=== PATIENT | female | born 1960 | race Caucasian/White ===

== ENCOUNTER → 2016-05-30 | Outpatient (CLI) | payer OTHER ==
[2016-05-30 13:57] LABS: ABSOLUTE NEUTROPHILS 2.9 thou/uL (1.4-8.2); BASOPHILS 0.9 % (0.0-2.0); EOSINOPHILS 2.9 % (0.0-3.0); HEMATOCRIT 43.2 % (37.0-47.0); HEMOGLOBIN 14.7 gm/dL (12.0-15.0); LYMPHOCYTES 29.4 % (24.0-44.0); MCH 31.2 pg (26.0-34.0); MCV 91.6 fL (80.0-100.0); MONOCYTES 6.5 % (1.0-8.0); PLATELET COUNT 221 thou/uL (150-400); POLYS 60.3 % (36.0-66.0); RBC 4.72 mil/uL (4.20-5.00); RDW 13.1 % (10.5-14.5); WBC 4.8 thou/uL (4.0-11.0)
[2016-05-30 13:58] LABS: URINE BILIRUBIN NEGATIVE (Negative); URINE BLOOD NEGATIVE (Negative); URINE COLOR YELLOW; URINE GLUCOSE-RANDOM* NEGATIVE (Negative); URINE KETONES NEGATIVE (Negative); URINE NITRITE NEGATIVE (Negative); URINE PROTEIN (DIPSTICK) NEGATIVE (Negative); URINE SPECIFIC GRAVITY <= 1.005 (1.003-1.035); URINE UROBILINOGEN 0.2 E.U./dl (0.2-1.0)
[2016-05-30 14:01] LABS: MANUAL DIFF NO
[2016-05-30 14:08] LABS: ANION GAP 8 mmol/L (7-16); BUN 14 mg/dL (7-18); CALCIUM 8.7 mg/dL (8.5-10.1); CHLORIDE 103 mmol/L (98-107); CO2 28 mmol/L (21-32); GLUCOSE 90 mg/dL (74-106); POTASSIUM 3.8 mmol/L (3.5-5.1); SODIUM 139 mmol/L (136-145)
[2016-05-30 14:17] LABS: ALBUMIN 3.5 g/dL (3.4-5.0); ALKALINE PHOSPHATASE 55 U/L (46-116); CHOLESTEROL 210 mg/dL (<200); HDL CHOLESTEROL 64 mg/dL (>40); LDL CHOLESTEROL 132 mg/dL (<100); SGOT 16 U/L (15-37); SGPT 18 U/L (30-65); TC:HDL 3.3 Ratio (Not establshd); TOTAL BILIRUBIN 0.5 mg/dL (<0.1-1.0); TOTAL PROTEIN 6.6 g/dL (6.4-8.2); TRIGLYCERIDE 70 mg/dL (<150); VLDL 14 mg/dL (<40)
== END ==
LOC: LABMALL 12:50
PROVIDERS: Family Medicine
DX: Z00.00 Encounter for general adult medical examination without abnormal findings (principal); E78.00 Pure hypercholesterolemia, unspecified

== ENCOUNTER → 2017-12-01 | Outpatient (CLI) | payer OTHER | LOC: RAD 03:29 | DX: Z12.31 Encounter for screening mammogram for malignant neoplasm of breast (principal) ==

== ENCOUNTER → 2017-12-01 | Outpatient (CLI) | payer OTHER | LOC: CAT | DX: Z13.6 Encounter for screening for cardiovascular disorders (principal); E78.00 Pure hypercholesterolemia, unspecified ==

== ENCOUNTER → 2017-12-08 | Outpatient (CLI) | payer OTHER | LOC: RAD 01:22 | DX: R92.0 Mammographic microcalcification found on diagnostic imaging of breast (principal); R92.1 Mammographic calcification found on diagnostic imaging of breast ==

== ENCOUNTER → 2017-12-09 | Outpatient (CLI) | payer OTHER ==
--- NOTE | ~2017-12-09 | PATH ---
[facility] [address] [place] [address] PATHOLOGY RPT PROCEDURE Name: KYE CARDOZA Room #: REG [facility] M..#: [id number] Admission: 12/09/17 Date of : 60 Discharge: Report #: [id number] Path Case #: [id number] [facility] Accession Number: [id number] . 01 Material submitted: . RIGHT BREAST CALCIFICATIONS . 01 Clinical history: . Calcifications . 02 Diagnosis: Breast "right breast biopsy for microcalcifications": - A focus of atypical ducts measuring 0.2 cm suspicious for ductal carcinoma. - Focal intraductal proliferation with microcalcification. - See comment. (SHA:clemente; 12/11/2017) QMS/12/12/2017 . 02 Comment: The immunoperoxidase stain on the A1 at area of ductal proliferation revealed the CK5/6 to be positive. Hence the ductal proliferation appears to be of usual type. The area of atypical ducts revealed p63 and smooth muscle myosin negative. The atypical ducts are suspicious for invasive ductal carcinoma. . This case is also reviewed by Dr. Yessenia Fowler. The focus of area suspicious for invasive ductal carcinoma is minute for breast prognostic studies, hence these should be performed on the lumpectomy specimen for accurate evaluation. . Ekaterina at Dr. Trina Yee's office was notified of the diagnosis on 12/12/17 at 2:30 pm. . . . . (SHA:clemente; 12/11/2017) . 02 Electronically signed: . Snia Dumont MD, Pathologist NPI- [id number] . 01 Gross description: . The specimen is received in formalin, labeled "Key Cardoza, right breast," and additionally labeled on the requisition as, "right central". [address] [address] PATHOLOGY RPT PROCEDURE Name: KEY CARDOZA Room #: REG CLI Blake.#: [id number] Admission: 12/09/17 Date of : 60 Discharge: Report #: [id number] Path Case #: [id number] Received are multiple needle cores of fibrofatty tissue measuring 3.2 x 3.1 x 0.5 cm in aggregate dimensions. Also received within the container is a plastic cassette containing multiple coarse measuring 1.5 x 1.0 x 0.3 cm in aggregate dimensions. The suspect tissue is transferred to cassettes A1 with the remainder the specimen submitted in cassettes A2 through A4. The cold ischemic time is 5 minutes. The total formalin fixation time is 10 hours and 40 minutes. (CAA; 12/09/2017) QAC/QAC . 02 Pathologist provided ICD-10: N60.91 . 02 CPT . 365990, M09415, K66351 Specimen Comment: A courtesy copy of this report has been sent to Specimen Comment: [phone], . Specimen Comment: Report sent to / DR YEE Performed at: [address], [place] [id number] MD Cuate Sesay MD Phone: [phone] Performed at: [address] [id number] MD Genia Merritt MD Phone: [phone]
== END | disposition home or self-care (01) ==
LOC: RAD 10:36
DX: R92.0 Mammographic microcalcification found on diagnostic imaging of breast (principal); Z98.890 Other specified postprocedural states

== ENCOUNTER → 2017-12-29 | Outpatient (CLI) | payer OTHER ==
[~2017-12-29] MED LIST: ASPIR 8181 MG PO; CENTRUM SILVER1 EAC4 PO; CLOBETASOL PROP15 GM TOP; CLONAZEPAM 0.50.5 M1 PO; CRESTOR10 MG PO; FLUOXETINE HCL40 MG PO
== END ==
LOC: MRI 10:30
DX: C50.411 Malignant neoplasm of upper-outer quadrant of right female breast (principal)

== ENCOUNTER 2018-01-06 05:23 | Day surgery (SDC) | payer OTHER ==
[2017-12-31 14:15] LABS: HEMATOCRIT 44.5 % (37.0-47.0); HEMOGLOBIN 15.1 gm/dL (12.0-15.0); MCH 31.2 pg (26.0-34.0); MCHC 33.8 g/dL (28.0-37.0); MCV 92.1 fL (80.0-100.0); RBC 4.83 mil/uL (4.20-5.00); RDW 12.7 % (10.5-14.5); WBC 6.1 thou/uL (4.0-11.0)
[2017-12-31 14:27] LABS: ALBUMIN 4.3 g/dL (3.4-5.0); CALCIUM 9.5 mg/dL (8.5-10.1); TOTAL BILIRUBIN 0.5 mg/dL (<0.1-1.0); TOTAL PROTEIN 7.3 g/dL (6.4-8.2)
[~2018-01-06] VITALS: Ht 165.1 cm; Wt 75.3 kg
--- NOTE | ~2018-01-06 | PATH ---
[facility] [address] [place] [address] PATHOLOGY RPT PROCEDURE Name: KEY CARDOZA Room #: DEP [facility].R.#: [id number] Admission: 01/06/18 Date of : 60 Discharge: 01/06/18 Report #: [id number] Path Case #: [id number] [facility] Accession Number: [id number] . 01 Material submitted: . PART A: RIGHT BREAST SEGMENTAL RESECTION, FREDDY SUTURE LAT, SHORT SUTUR SUPER PART B: RIGHT AXILLARY SENTINEL LYMPH NODE #1 PART C: RIGHT AXILLARY SENTINEL LYMPH NODE #2 PART D: RIGHT AXILLARY SENTINEL LYMPH NODE #3 . 01 Clinical history: . Right breast cancer . 02 Diagnosis: A. Breast, right breast segmental resection: - No residual invasive carcinoma present; biopsy site changes present. - DUCTAL CARCINOMA IN SITU, CRIBRIFORM TYPE AND INTERMEDIATE NUCLEAR GRADE. - Margins of resection free of ductal carcinoma in situ; closest inferior margin is 1 mm away. - FOCAL ATYPICAL DUCTAL HYPERPLASIA PRESENT AT INFERIOR MARGIN. - Background breast tissue showing proliferative fibrocystic changes associated with adenosis, apocrine metaplasia, usual ductal hyperplasia, as well as columnar cell change. . B. Lymph node (1), right axillary sentinel lymph node #1, biopsy: - Reactive lymph node without isolated tumor cells, micrometastases, or malignancy (0/1). . C. Lymph node (1), right axillary sentinel lymph node #2, biopsy: - Reactive lymph node without isolated tumor cells, micrometastases, or malignancy (0/1). . D. Lymph node (1), right axillary sentinel lymph node #3, biopsy: - Reactive lymph node without isolated tumor cells, micrometastases, or malignancy (0/1). . (IUV:clemente; 01/13/2018) . . Surgical Pathology Cancer Case Summary . Protocol posting date: February 2017 . INVASIVE CARCINOMA OF THE BREAST: . Specimen Identification . [address] [address] PATHOLOGY RPT PROCEDURE Name: KEY CARDOZA Room #: DEP [facility].#: [id number] Admission: 01/06/18 Date of : 60 Discharge: 01/06/18 Report #: [id number] Path Case #: [id number] Procedure . ___ Excision (less than total mastectomy) . Specimen Laterality . ___ Right . Tumor Size . ___ No residual invasive carcinoma in the lumpectomy . ___ Greatest dimension of largest invasive focus is 1 mm in the biopsy . Histologic Type . ___ Micro-invasive carcinoma in the biopsy . Histologic Grade (Hiwot Histologic Score) . ___ Only microinvasion present (not graded) . Tumor Focality . ___ Single focus of invasive carcinoma . Ductal Carcinoma In Situ (DCIS) . ___ Present . ___ Negative for extensive intraductal component (EIC) . Tumor Extension . Skin . ___ Not applicable . Nipple . ___ Not applicable . Margins . Invasive Carcinoma Margins (required only if residual invasive carcinoma is present in specimen) . ___ Cannot be assessed; no residual carcinoma [facility] [address] [place] [address] PATHOLOGY RPT PROCEDURE Name: KEY CARDOZA Florecita Room #: DEP [facility]..#: [id number] Admission: 01/06/18 Date of : 60 Discharge: 01/06/18 Report #: [id number] Path Case #: [id number] . DCIS Margins (required only if DCIS is present in specimen) . ___ Uninvolved by DCIS (required only if residual DCIS is present in specimen) . Distance from closest margin (millimeters): 1 mm . Specify closest margin: inferior . Regional Lymph Nodes . ___ Uninvolved by tumor cells . Number of Lymph Nodes Examined: 3 . Number of Beverly Nodes Examined: 3 . Treatment Effect . ___ No known presurgical therapy . Lymphovascular Invasion . ___ Not identified . Dermal Lymphovascular Invasion . ___ Not applicable . Pathologic Stage Classification (pTNM, AJCC 8th Edition) . Note: Reporting of pT, pN, and (when applicable) pM categories is based on information available to the pathologist at the time the report is issued. . Primary Tumor (Invasive Carcinoma) (pT) . ___ pT1mi: Tumor 1 mm in greatest dimension . Category (pN) . ___ pN0: No regional lymph node metastasis identified . Distant Metastasis (pM) (required only if confirmed pathologically in this case) . ___ pMx: Unknown . [facility] [place] [address] PATHOLOGY RPT PROCEDURE Name: NANIKEY M Room #: DEP [facility].#: [id number] Admission: 01/06/18 Date of : 60 Discharge: 01/06/18 Report #: [id number] Path Case #: [id number] Clinical History . The current clinical/radiologic breast findings for which this surgery is performed include: . ___ Radiologic finding . ___ Calcifications QMS/01/13/2018 . 02 Comment: The biopsy tissue [id number] is examined subsequent to examining most of the lumpectomy sections including the biopsy cavity as well as the fibrous areas identified grossly. There is no residual invasive ductal carcinoma present in the current lumpectomy specimen. The biopsy tissue; however, shows a definitive 1 mm focus of microinvasive carcinoma (pT1mi). The biopsy was performed for calcifications. The ductal carcinoma in situ identified in the biopsy along with its adjacent invasive focus are present in close vicinity of the microcalcifications. There are no microcalcifications present in the lumpectomy specimen. ER, IN, HER-2/brandy and Ki-67 are ordered on the biopsy tissue, and a separate addendum will be issued on that report (please refer to separate report for details). . P63 and myosin immunohistochemical stains are performed on block A5, as well as A44. Intact myoepithelial lining is identified in all the foci examined. Calponin and SMA (actin) are performed on block A19 and show intact myoepithelial cells as well. . AE1/AE3 immunohistochemical stain is performed on blocks B1, C1, and D1. There are no tumor cells, micrometastases, or macrometatases identified on the immunohistochemical stains. . Fur Machine Operator slides of this lumpectomy along with the previous biopsy are co-reviewed with Dr. Yessenia Fowler and Dr. Naheed Echols. Findings of this case are discussed with Dr. Pollack on 01/12/2018 and again conveyed to Ms. Lui, Dr. Pollack's nurse, at 11:45 a.m. on 01/13/2018. . (IUV:clemente; 01/13/2018) . 02 Electronically signed: . Genia Merritt MD, Pathologist NPI- [id number] . 01 Gross description: . A. The specimen is received in formalin, labeled "Key Cardoza, right breast segmental resection, long suture lateral, short superficial". Received is a 48 g lumpectomy specimen oriented with a short suture [address] [address] PATHOLOGY RPT PROCEDURE Name: KEY CARDOZA Room #: DEP [facility] M.R.#: [id number] Admission: 01/06/18 Date of : 60 Discharge: 01/06/18 Report #: [id number] Path Case #: [id number] designating superficial/anterior aspect and a long suture designating the lateral aspect. The specimen measures 6.7 cm from superior to inferior, 5.2 cm from superficial/anterior to deep/posterior, and 3.4 cm from medial to lateral. There is a localization wire present which enters through the superficial/anterior aspect. The specimen is inked as follows: Superior-blue, inferior-green, lateral-red, medial-yellow, superficial/anterior-black, deep/posterior-orange. Sectioning reveals a previous biopsy site, with a metallic clip present, measuring 1.0 x 0.6 x 0.4 cm in greatest dimensions. This site is 0.7 cm from the inferior margin, 6.1 cm from the superior margin, 1.3 cm from the anterior margin, 1.7 cm from the posterior margin, 0.8 cm from the medial margin, and 1.3 cm from the lateral margin. Biopsy site changes are noted in the surrounding tissue. The remainder the specimen is comprised of white-dodd, fibrous to bright yellow, lobulated tissue, with the fibrous tissue encompassing approximately 85% of the specimen. Residual tumor is not grossly identified. The specimen is submitted representatively as follows: . A1 most inferior margin A2 most superior margin A3-A6 entire previous biopsy site submitted from inferior to superior aspects, with the section where the clip was located submitted in cassette A5. . The cold ischemic time is 6 minutes. The total followed fixation time is 53 hours and 50 minutes. (CAA; 01/07/2018) . After initial microscopic examination, the remainder the specimen is submitted in cassettes A7 through A45. The sections in cassettes A8 through A27 are bisected into anterior and posterior aspects. The sections in cassettes A28 through A42 are additionally trisected into anterior to posterior aspects. (CAA; 01/09/2018) . B. The specimen is received in formalin, labeled "Key Cardoza, right axillary sentinel lymph node #1, count 2053". Received is a segment of yellow-dodd lobulated tissue measuring 1.9 x 1.5 x 1.0 cm in greatest dimensions. Dissection and palpation of the specimen reveals a single lymph node measuring 1.3 cm in maximum dimensions. The lymph node is bisected and entirely submitted in cassette B1. Immunohistochemical stains are ordered. . C. The specimen is received in formalin, labeled "Key Cardoza, right axillary sentinel lymph node #2, count 2452". Received is a segment of yellow-dodd lobulated tissue measuring 2.3 x 1.5 x 1.0 cm in greatest dimensions. Dissection and palpation of the specimen reveals a single lymph node measuring 1.0 cm in maximum dimensions. The lymph node is [facility] [address] [place] [address] PATHOLOGY RPT PROCEDURE Name: KEY CARDOZA Room #: DEP [facility].#: [id number] Admission: 01/06/18 Date of : 60 Discharge: 01/06/18 Report #: [id number] Path Case #: [id number] bisected and entirely submitted in cassette C1. Immunohistochemical stains are ordered. . D. The specimen is received in formalin, labeled "Key Cardoza, right axillary sentinel lymph node #3". Received is a segment of yellow-dodd lobulated tissue measuring 3.1 x 1.4 x 1.2 cm in greatest dimensions. Dissection and palpation of the specimen reveals a possible fatty replaced lymph node measuring 1.7 cm in maximum dimensions. The lymph node is bisected and entirely submitted in cassette D1. Immunohistochemical stains are ordered. (CAA; 01/07/2018) QAC/QAC . 02 Pathologist provided ICD-10: D05.11, N60.91, N60.11, N60.21, N60.81, N62 . 02 CPT . 403614, 539117, 735644, 739906, U13840, R08156 Specimen Comment: A courtesy copy of this report has been sent to Specimen Comment: [phone], . Specimen Comment: Report sent to / DR OLMSTEAD Performed at: [address], [place], [place] [id number] MD Cuate Sesay MD Phone: [phone] Performed at: [address] [id number] MD Genia Merritt MD Phone: [phone]
--- NOTE | ~2018-01-06 | O ---
[facility] [place] [address] OPERATIVE REPORT Name: KEY CARDOZA Room #: 150-2 [facility]#: [id number] Admission: 01/06/18 Attend Phys: Artemio Pollack MD Discharge: Date of : 60 Report #: [id number] THIS REPORT FOR: //name// CC: Artemio Yee MD DATE OF SERVICE: 01/06/2018 PREOPERATIVE DIAGNOSIS: Carcinoma right breast, recent needle biopsy for calcifications. POSTOPERATIVE DIAGNOSIS: Carcinoma right breast, recent needle biopsy for calcifications, final pathology pending. OPERATION: 1. Lymphatic mapping. 2. Right breast segmental resection with wire localization and specimen x-ray. 3. Placement of BioZorb tissue marker. 4. Right axillary sentinel lymph node resection x 3. SURGEON: Artemio Pollack MD MARINE STRUCTURAL WELDER: Medical student MS Juan3. SECOND TAXATION CONSULTANT: Medical student MS Ary3. ANESTHESIA: General. DESCRIPTION OF PROCEDURE: The patient was taken to Nuclear Medicine and the radiologist injected technetium sulfur colloid into the right breast as per protocol. Lymphoscintigraphy demonstrated 2 hot spots in the right axilla, which were marked by the radiologist. The radiologist also performed wire localization for the biopsy clip in the upper right breast from the recent biopsy. The patient was brought to the operating room for a general anesthetic. Lymphatic mapping was performed using the gamma probe and we confirmed the presence of a right axillary hot spot with a 10-second count of 795. Next, 5 mL of Lymphazurin blue dye was injected around the tumor site using alcohol prep and sterile technique. Next, the right breast and right axilla were widely prepped with ChloraPrep solution. Sterile drapes were applied. A curved circumareolar incision was made in the right breast closer to the areola than the wire insertion site in order to give the patient a more cosmetic incision. Dissection was carried down through the skin and subcutaneous tissues and then in the superficial plane up to the guidewire, which was delivered into the incision. A segmental resection was performed, removing the breast tissue around the shaft and tip of the guidewire as recommended by the radiologist. [address] [address] OPERATIVE REPORT Name: KEY CARDOZA Room #: 150-2 [facility].#: [id number] Admission: 01/06/18 Attend Phys: Artemio Pollack MD Discharge: Date of : 60 Report #: [id number] The resection included the underlying pectoralis fascia. The specimen was marked with sutures for orientation purposes. Specimen x-ray confirmed removal of the guidewire and the clip and the tumor site together with normal breast tissue all around. The radiologist was happy with the specimen x-ray and so was I. The specimen was given directly to the pathologist. Palpation from within the breast revealed no other suspicious areas. Hemostasis was obtained using electrocautery. The breast tissue was mobilized from the underlying chest wall in order to perform oncoplastic closure to give the patient the best possible cosmetic result. It is estimated that greater than 35 cm2 of tissue were mobilized. We elected to place tissue marker into the lumpectomy cavity in case the patient might need a boost of radiation therapy. We utilized the BioZorb tissue marker sizer to determine that the 3 x 3 x 1 low profile BioZorb tissue marker would be a good size for this patient. The 3 x 3 x 1 cm low profile BioZorb tissue marker was placed into the lumpectomy cavity and then was sutured in place using interrupted 3-0 Vicryl. The breast tissue was reapproximated using interrupted 3-0 Vicryl to complete the oncoplastic closure. The skin was closed using running 4-0 subcuticular PDS. Next, a transverse incision was made along the skin crease in the right axilla near the hotspot location. Dissection was carried down through the skin and subcutaneous tissue into the axilla with care being taken to avoid injury to the neurovascular structures. We found 3 sentinel nodes, which were each excised, controlling the blood and lymphatic supply using Harmonic scalpel. Painter node #1 had a 10-second count of 2053, it was not blue. Painter node #2 had a 10-second count of 2451, it was not blue. Painter node #3 had a 10-second count of 1305, it was not blue. All 3 were submitted to pathology. We found no blue lymph nodes nor were there any residual radioactive lymph nodes to be found. Palpation revealed no suspicious nodes. The post-resection bed count was 5, which was well below 10% of the highest node. Hemostasis was excellent. The sponge, instrument and needle counts were reported as correct. The incision was closed using running 3-0 Vicryl for the deep layer and running 4-0 PDS for the subcuticular layer. Sterile dressings were applied and the patient was taken to recovery in satisfactory condition. Estimated blood loss was less than 20 mL. By: 1638 1653 Artemio Pollack MD /aelksandra
[2018-01-06 11:43] VITALS: BP 139/64
== END 2018-01-06 18:20 | disposition home or self-care (01) ==
LOC: OR 05:23 → TBA 05:25 → OR 13:00
PROVIDERS: Specialist
DX: D05.11 Intraductal carcinoma in situ of right breast (principal); N60.91 Unspecified benign mammary dysplasia of right breast; N60.11 Diffuse cystic mastopathy of right breast; N60.81 Other benign mammary dysplasias of right breast; N62 Hypertrophy of breast; N60.21 Fibroadenosis of right breast; R92.1 Mammographic calcification found on diagnostic imaging of breast; E78.5 Hyperlipidemia, unspecified; K21.9 Gastro-esophageal reflux disease without esophagitis; F32.9 Major depressive disorder, single episode, unspecified; F41.9 Anxiety disorder, unspecified; Z87.891 Personal history of nicotine dependence; Z98.890 Other specified postprocedural states; Z88.0 Allergy status to penicillin; Z88.8 Allergy status to other drugs, medicaments and biological substances; Z79.82 Long term (current) use of aspirin; Z79.899 Other long term (current) drug therapy
CPT/HCPCS: 50101; 50386; 50403; 52190; 53332; 56524; 56526; 62110; 62900; 70005

== ENCOUNTER → 2018-07-08 | Outpatient (CLI) | payer BC, OTHER | LOC: NUC 05-01 13:45 | DX: M85.89 Other specified disorders of bone density and structure, multiple sites (principal); D49.3 Neoplasm of unspecified behavior of breast; Z78.0 Asymptomatic menopausal state ==